=== PATIENT | female | born 1935 | race African-American/Black ===

== ENCOUNTER 2017-08-05 11:41 | Outpatient (CLI) | payer MEDICARE, OTHER ==
--- NOTE | 2017-08-05 17:08 | Diagnostic Imaging Report ---
Indication: Reason For Exam: COUGH Technique: 2 views of the chest Comparison: none Findings: The heart is enlarged. Lungs and pleural spaces are clear. There is questionably a small hiatal hernia versus lower aortic tortuosity. The bones are unremarkable Impression: Cardiomegaly. No acute process
== END 2017-08-05 13:41 | disposition home or self-care (01) ==
LOC: RAD 11:41
DX: R05 Cough (principal); I51.7 Cardiomegaly
CPT/HCPCS: 71020